=== PATIENT | male | born 1965 | race African-American/Black ===

== ENCOUNTER 2019-09-03 08:30 | Outpatient (CLI) | payer BC ==
--- NOTE | 2019-09-03 09:01 | ULT ---
Exam: Bilateral renal ultrasound HISTORY: Renal insufficiency COMPARISON: None FINDINGS: Right kidney: Normal cortical echotexture. No hydronephrosis. Right kidney measurements: 5.8 x 11.0 x 5.1 cm. Left kidney: Normal cortical echotexture. No hydronephrosis Left kidney measurements 5.3 x 5.3 x 12.0 cm. Urinary bladder: Normal mucosa Prostate: Prominent prostate gland measuring 6.0 x 4.9 x 6.0 cm IMPRESSION: 1. No hydronephrosis 2. Prominent prostate gland
== END 2019-09-03 08:31 | disposition home or self-care (01) ==
LOC: BICULT 08:30
PROVIDERS: ATTEND Internal Medicine
DX: N28.9 Disorder of kidney and ureter, unspecified (principal)
CPT/HCPCS: 76770